=== PATIENT | male | born 1995 | race Caucasian/White ===

== ENCOUNTER 2021-07-19 09:59 | Emergency (ER) | payer OTHER ==
[2021-07-20 07:46] LABS: SARS-CoV-2 PCR by NAA Not Detected (NotDetected)
== END 2021-07-19 15:46 | disposition home or self-care (01) ==
LOC: CSHERS 09:59
DX: R05 Cough (principal); R50.9 Fever, unspecified; R06.02 Shortness of breath; J34.89 Other specified disorders of nose and nasal sinuses; Z20.822 Contact with and (suspected) exposure to COVID-19
CPT/HCPCS: 99283; U0003; U0005

== ENCOUNTER 2021-11-18 12:17 | Outpatient (CLI) | payer BC | END 2021-11-18 12:18 | disposition home or self-care (01) | LOC: CSHULT 12:17 | PROVIDERS: ATTEND Family Medicine | DX: E04.9 Nontoxic goiter, unspecified (principal); E07.9 Disorder of thyroid, unspecified | CPT/HCPCS: 76536 ==

== ENCOUNTER 2021-11-23 13:16 | Outpatient (CLI) | payer BC | END 2021-11-23 13:17 | disposition home or self-care (01) | LOC: CSHCT 13:16 | PROVIDERS: ATTEND Family Medicine | DX: R59.0 Localized enlarged lymph nodes (principal) | CPT/HCPCS: 70491 ==